=== PATIENT | female | born 1985 ===

== ENCOUNTER 2019-04-05 11:00 | Inpatient (IN) | payer OTHER ==
[~2019-04-05] VITALS: Ht 167.6 cm; Wt 87.5 kg
[2019-04-05] MEDS ORDERED: LOSARTAN POTASS50 MG PO (13:46)
[2019-04-10] MEDS ORDERED: ANAPROX PO (10:11)
[2019-04-10] MEDS ORDERED: TYLENOL #3 PO (10:11)
== END 2019-04-10 11:36 | disposition home or self-care (01) | DRG 743 ==
LOC: O/R 11:00 → SURG 04-07 10:52 → SURH 04-07 11:00 → SURG 04-07 15:18
PROVIDERS: ADMIT Obstetrics & Gynecology
PROC: 0UB90ZZ Excision of Uterus, Open Approach (ICD-10-PCS; principal; 2019-04-07 14:30)
DX: D25.1 Intramural leiomyoma of uterus (principal); N92.0 Excessive and frequent menstruation with regular cycle

== ENCOUNTER 2023-04-23 08:45 | Inpatient (IN) | payer OTHER ==
[~2023-04-23] VITALS: Ht 165.1 cm; Wt 89.8 kg
[~2023-04-23 08:45] MED LIST: ANAPROX PO; LOSARTAN POTASS50 MG PO; TYLENOL #3 PO
[2023-04-23 09:26] LABS: URINE APPEARANCE Clear; URINE BILIRRUBIN Negative (NEGATIVE); URINE BLOOD Trace; URINE COLOR Yellow; URINE GLUCOSE Negative (NEGATIVE); URINE LEUKOCYTE Negative; URINE NITRATE Negative; URINE PROTEIN Negative (NEGATIVE); URINE UROBILINOGEN 0.2 E.U./dl
[2023-04-23 09:28] LABS: URINE EPITHELIAL CELLS 18.2 uL (0.0-38.8); URINE RBC 38.8 uL (0.0-20.8); URINE WBC 12.2 uL (0.0-23.2)
[2023-04-23 09:39] LABS: HEMATOCRIT 34.4 % (36.0-45.00); HEMOGLOBIN 11.3 g/dL (12.0-15.00); MEAN CELL VOLUME 85.7 fL (80.00-100.00); MEAN CORPUSCULAR HEMOGLOBIN 28.2 pg (27.00-32.0); MEAN CORPUSCULAR HGB CONC 32.8 g/dl (32.0-36.0); PLATELET COUNT 275 K/uL (150-450); RED BLOOD COUNT 4.02 M/uL (4.00-6.00)
[2023-04-23 09:41] LABS: RED CELL DISTRIBUTION WIDTH 20.4 % (11.5-14.5)
[2023-04-23 10:09] LABS: INR 1.04; PARTIAL THROMBOPLASTIN TIME 27.5 SECONDS (22.0-34.0); PROTHROMBIN TIME 10.9 SECONDS (9.0-11.5)
[2023-04-23 10:22] LABS: BILIRUBIN TOTAL 0.76 mg/dL (0.3-1.2); CALCIUM 9.4 mg/dL (8.5-10.1); CREATININE SERUM 0.75 mg/dL (0.55-1.02); GFR 86.95; GLOBULINA 3.7 G/DL (2.4-3.5); POTASSIUM 4.46 mEq/L (3.5-5.1); TOTAL PROTEIN 7.7 gm/dL (6.4-8.2)
[2023-04-30] MEDS ORDERED: FOLIC ACID1 MG (13:08)
[2023-04-30] MEDS ORDERED: LOSARTAN POTAS100 MG (13:08)
[2023-04-30 20:25] LABS: HEMOGLOBIN 11.9 g/dL (12.0-15.00); MEAN CELL VOLUME 84.9 fL (80.00-100.00); MEAN CORPUSCULAR HEMOGLOBIN 28.9 pg (27.00-32.0); MEAN CORPUSCULAR HGB CONC 34.1 g/dl (32.0-36.0); PLATELET COUNT 243 K/uL (150-450); RED BLOOD COUNT 4.12 M/uL (4.00-6.00); RED CELL DISTRIBUTION WIDTH 19.1 % (11.5-14.5)
[2023-05-01] MEDS ORDERED: TRAM1TAB98 PO (08:57)
[2023-05-01] MEDS ORDERED: IBU600 MG PO (08:58)
== END 2023-05-01 11:02 | disposition home or self-care (01) | DRG 743 ==
LOC: CIR.AMB 08:45 → SURH 08:45 → ADM 08:45 → EDSTATUS 08:45 → O/R 04-30 05:45 → OB/GYN 04-30 15:08
PROVIDERS: Surgery; ADMIT Obstetrics & Gynecology; ATTEND Obstetrics & Gynecology
PROC: 0DNW4ZZ Release Peritoneum, Percutaneous Endoscopic Approach (ICD-10-PCS; 2023-04-30)
PROC: 0DN84ZZ Release Small Intestine, Percutaneous Endoscopic Approach (ICD-10-PCS; 2023-04-30)
PROC: 0DNP4ZZ Release Rectum, Percutaneous Endoscopic Approach (ICD-10-PCS; 2023-04-30)
PROC: 0TJB8ZZ Inspection of Bladder, Via Natural or Artificial Opening Endoscopic (ICD-10-PCS; 2023-04-30)
PROC: 0DJD8ZZ Inspection of Lower Intestinal Tract, Via Natural or Artificial Opening Endoscopic (ICD-10-PCS; 2023-04-30)
PROC: 0UT9FZZ Resection of Uterus, Via Natural or Artificial Opening With Percutaneous Endoscopic Assistance (ICD-10-PCS; principal; 2023-04-30 10:15)
PROC: 0UT7FZZ Resection of Bilateral Fallopian Tubes, Via Natural or Artificial Opening With Percutaneous Endoscopic Assistance (ICD-10-PCS; 2023-04-30 10:15)
DX: D25.1 Intramural leiomyoma of uterus (principal); Z20.822 Contact with and (suspected) exposure to COVID-19; N73.6 Female pelvic peritoneal adhesions (postinfective); N81.11 Cystocele, midline; N92.0 Excessive and frequent menstruation with regular cycle